=== PATIENT | male | born 1965 | race American Indian/Alaskan Native ===

== ENCOUNTER 2017-09-09 22:59 | Inpatient (IN) | payer SELFPAY ==
[2017-09-10 01:56] LABS: Basophils % (Auto) 0.5 % (0.0-1.8); Eosinophils # (Auto) 0.1 K/mm3 (0.0-0.4); Eosinophils % (Auto) 1.1 % (0.0-4.3); Hematocrit 35.5 % (35.5-45.6); Hemoglobin 11.8 gm/dl (11.8-15.2); Lymphocytes # (Auto) 1.2 K/mm3 (1.2-5.4); Lymphocytes % (Auto) 19.2 % (13.4-35.0); Mean Corpuscular HGB Conc 33 % (32-34); Mean Corpuscular Hemoglobin 29 pg (28-32); Mean Corpuscular Volume 87 fl (84-94); Monocytes # (Auto) 0.6 K/mm3 (0.0-0.8); Monocytes % (Auto) 8.7 % (0.0-7.3); Platelet Count 194 K/mm3 (140-440); Red Blood Count 4.07 M/mm3 (3.65-5.03); Red Cell Distribution Width 13.4 % (13.2-15.2)
[2017-09-10 01:59] LABS: Calcium 8.7 mg/dL (8.4-10.2)
[2017-09-10] MEDS ORDERED: UNASYN 3 GM in NACL 0.9% 50 ML IV ONE (12:44)
--- NOTE | 2017-09-10 12:52 | Emergency Department Report ---
ED Lower Extremity HPI - General Chief Complaint: Hyperglycemia Stated Complaint: BILATERAL FOOT PAIN Source: patient Mode of arrival: Ambulatory Limitations: No Limitations - History of Present Illness Initial Comments: 52 yo male with hx of IDDM presents with bilateral foot blisters. 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 He has kept his feet dry. He has bilateral leg swelling chronically but worse then previous. He has several large blisters on both feet. Moderately severe bilateral leg achy pain. Symptoms began gradually 3 days ago. Feet and legs are very tender to touch. Patient does not have a PCP. He states that his blood sugars have been well- controlled. - Related Data Home Medications Medication Instructions Recorded Confirmed Last Taken glipiZIDE [Glipizide Xl] 10 mg PO BID 12/24/13 12/21/14 12/18/14 10mg Previous Rx's Medication Instructions Recorded Last Taken Type Insulin NPH/Regular [NovoLIN 70/30] 25 unit SQ BIDDIAB #1000 ml 02/06/14 Rx 25 units HYDROcodone/ACETAMINOPHEN [[place] 1 each PO Q4-6H PRN #20 tablet 12/21/14 Unknown Rx 7.5-325 mg TAB] Indomethacin 50 mg PO Q8H PRN #30 capsule 12/21/14 Unknown Rx Allergies Allergy/AdvReac Type Severity Reaction Status Date / Time apple [Apple] Allergy Shortness Verified 01/29/14 18:29 of Breath ED Review of Systems ROS: Stated complaint: BILATERAL FOOT PAIN Other details as noted in HPI Comment: All other systems reviewed and negative Constitutional: chills. denies: fever, malaise Neurological: headache (resolved) ED Past Medical Hx - Past Medical History Hx Congestive Heart Failure: No Hx Diabetes: Yes Hx Asthma: No Hx COPD: No - Surgical History Additional Surgical History: prostate surgery - Social History Smoking Status: Never Smoker Substance Use Type: None - Medications Home Medications: Home Medications Medication Instructions Recorded Confirmed Last Taken Type glipiZIDE [Glipizide Xl] 10 mg PO BID 12/24/13 12/21/14 12/18/14 History 10mg Insulin NPH/Regular [NovoLIN 70/30] 25 unit SQ BIDDIAB #1000 ml 02/06/1412/20/14 Rx 25 units HYDROcodone/ACETAMINOPHEN [[place] 1 each PO Q4-6H PRN #20 tablet 12/21/14 Unknown Rx 7.5-325 mg TAB] Indomethacin 50 mg PO Q8H PRN #30 capsule 12/21/14 Unknown Rx ED Physical Exam - General Limitations: No Limitations General appearance: alert, in no apparent distress - Head Head exam: Present: atraumatic, normocephalic - Eye Eye exam: Present: normal appearance - ENT ENT exam: Present: mucous membranes dry, mucous membranes moist - Neck Neck exam: Present: normal inspection. Absent: meningismus - Respiratory Respiratory exam: Present: normal lung sounds bilaterally. Absent: respiratory distress, wheezes, rales, rhonchi - Cardiovascular Cardiovascular Exam: Present: regular rate, normal rhythm, normal heart sounds. Absent: bradycardia, tachycardia, systolic murmur, diastolic murmur, rubs, gallop - GI/Abdominal GI/Abdominal exam: Present: soft, normal bowel sounds. Absent: distended, tenderness, guarding, rebound, rigid - Rectal Rectal exam: Present: deferred - Extremities Exam Extremities exam: Present: other (two large blisters intact left foot right foot large blister not intact with yellow serous drainage) - Back Exam Back exam: Present: normal inspection - Neurological Exam Neurological exam: Present: alert, oriented X3 - Psychiatric Psychiatric exam: Present: normal affect, normal mood - Skin Skin exam: Present: other (erythema prominent distal foot, toes RLE). Absent: dry, intact, normal color ED Course Vital Signs 09/10/17 09/10/17 09/10/17 01:01 07:57 12:56 Temperature 97.7 F 98.8 F 98.3 F Pulse Rate 74 91 H 94 H Respiratory 20 16 16 Rate Blood Pressure 152/76 130/96 Blood Pressure 169/70 [Right] O2 Sat by Pulse 98 97 100 Oximetry 09/10/17 12:57 Temperature Pulse Rate Respiratory 16 Rate Blood Pressure Blood Pressure [Right] O2 Sat by Pulse 100 Oximetry ED Lower Extremity MDM - Lab Data Result diagrams: 09/10/17 01:21 09/10/17 01:21 - Medical Decision Making Mr. Chi presents with large blisters on both feet with underlying cellulitis. Patient is a high risk for limb compromise and sepsis with history of diabetes. Dr. Richardson will admit for further care Critical care attestation.: If time is entered above; I have spent that time in minutes in the direct care of this critically ill patient, excluding procedure time. ED Disposition Clinical Impression: Diabetic foot infection, Cellulitis Disposition: OP ADMIT IP TO THIS HOSP Is pt being admited?: Yes Does the pt Need Aspirin: No Condition: Stable Referrals: PRIMARY CARE, [Primary Care Provider] - 3-5 Days Time of Disposition: 14:11
[2017-09-10] MEDS ORDERED: NACL 0.9% 1000 ML 1,000 ML IV ONE (12:53)
[2017-09-10] MEDS ORDERED: UNASYN/NS 3 GM/100 ML 3 GM/100 ML BAG IV ONE (14:00)
[2017-09-10] MEDS ORDERED: VANCOMYCIN/NS 1 GM/250 ML 1 GM/250 ML BAG IV SCH (14:00)
[2017-09-10] MEDS ORDERED: MOTRIN PO ONE (14:02)
[2017-09-10] MEDS ORDERED: PERCOCET 5/325 PO ONE (14:02)
[2017-09-10] MEDS ORDERED: BOOSTRIX IM ONE (14:10)
[2017-09-10] MEDS ORDERED: VANCOMYCIN/0.45 NS 1 GM/250 ML 1 GM/250 ML BAG IV SCH (14:30)
--- NOTE | 2017-09-10 15:22 | XRay Report ---
BILATERAL FEET, 2 VIEWS History: Foot infection. Findings: There is nonspecific soft tissue swelling of both feet, left greater than right. Normal bone mineralization. No acute osseous findings or joint pathology is identified. Impression: Nonspecific soft tissue swelling most consistent with a cellulitis. No acute bony findings are appreciated on x-ray.
[2017-09-10] MEDS ORDERED: D50W (25GM) Syringe IV PRN (15:47)
[2017-09-10] MEDS: NOVOLOG SUB-Q SCH ×2 (17:22→23:07)
[2017-09-10] MEDS: PERCOCET 5/325 PO PRN (23:08)
--- NOTE | 2017-09-10 23:55 | History and Physical Report ---
History of Present Illness Date of examination: 09/10/17 Date of admission: 09/10/17 14:12 Chief complaint: CC Blisters and redness both feet History of present illness: History of Present Illness 52 yo male with hx of IDDM presents with bilateral foot blisters. 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 He has kept his feet dry. He has bilateral leg swelling chronically but worse then previous. He has several large blisters on both feet. Moderately severe bilateral leg achy pain. Symptoms began gradually 3 days ago. Feet and legs are very tender to touch. Patient does not have a PCP. He states that his blood sugars have been well- controlled. Past Medical History Hx Congestive Heart Failure: No Hx Diabetes: Yes Hx Asthma: No Hx COPD: No - Surgical History Additional Surgical History: prostate surgery - Social History Smoking Status: Never Smoker Substance Use Type: None - Medications Home Medications: Home Medications Medication Instructions Recorded Confirmed Last Taken Type glipiZIDE [Glipizide Xl] 10 mg PO BID 12/24/13 12/21/14 12/18/14 History 10mg Insulin NPH/Regular [NovoLIN 70/30] 25 unit SQ BIDDIAB #1000 ml 02/06/1412/20/14 Rx 25 units HYDROcodone/ACETAMINOPHEN [[place] 1 each PO Q4-6H PRN #20 tablet 12/21/14 Unknown Rx 7.5-325 mg TAB] Indomethacin 50 mg PO Q8H PRN #30 capsule 12/21/14 Unknown Rx Review of Systems ROS: Stated complaint: BILATERAL FOOT PAIN Other details as noted in HPI Comment: All other systems reviewed and negative Constitutional: chills. denies: fever, malaise Neurological: headache (resolved) Medications and Allergies Allergies Allergy/AdvReac Type Severity Reaction Status Date / Time apple [Apple] Allergy Shortness Verified 01/29/14 18:29 of Breath Home Medications Medication Instructions Recorded Confirmed Last Taken Type glipiZIDE [Glipizide Xl] 10 mg PO BID 12/24/13 09/10/17 12/18/14 History 10mg Insulin NPH/Regular [NovoLIN 70/30] 25 unit SQ BIDDIAB #1000 ml 02/06/1412/20/14 Rx 25 units Active Meds: Active Medications Dextrose (D50w (25gm) Syringe) 50 ml IV PRN PRN PRN Reason: Hypoglycemia Vancomycin HCl (Vancomycin/0.45 Ns 1 Gm/250 Ml) 1 gm in 250 mls @ 125 mls/hr IV ONCE [facility] PRN Reason: Protocol Insulin Aspart (Novolog) 0 units SUB-Q ACHS [place] PRN Reason: Protocol Last Admin: 09/10/17 23:07 Dose: 8 units Oxycodone/Acetaminophen (Percocet 5/325) 1 tab PO Q4H PRN PRN Reason: Pain, Moderate (4-6) Last Admin: 09/10/17 23:08 Dose: 1 tab Exam - Constitutional Vitals: Temp Pulse Resp BP Pulse Ox 98.1 F 88 18 143/82 97 09/10/17 16:50 09/10/17 16:50 09/10/17 16:50 09/10/17 16:50 09/10/17 16:50 General appearance: Present: no acute distress, well-nourished - EENT Eyes: Present: PERRL ENT: hearing intact, clear oral mucosa - Neck Neck: Present: supple, normal ROM - Respiratory Respiratory effort: normal Respiratory: bilateral: CTA - Cardiovascular Heart rate: 80 Rhythm: regular Heart Sounds: Present: S1 & S2. Absent: rub, click - Extremities Extremities: pulses symmetrical, No edema, Full ROM, abnormal (Blisters both feet -10cm x 5 cm blister on L foot) Extremity abnormal: erythema (Both feet) Peripheral Pulses: within normal limits - Abdominal General gastrointestinal: Present: soft, non-tender, non-distended, normal bowel sounds Male genitourinary: Present: normal - Integumentary Integumentary: Present: clear, warm, dry - Musculoskeletal Musculoskeletal: gait normal, strength equal bilaterally - Psychiatric Psychiatric: appropriate mood/affect, intact judgment & insight - Neurologic Neurologic: CNII-XII intact, moves all extremities Results - Labs CBC & Chem 7: 09/10/17 01:21 09/10/17 01:21 Labs: Laboratory Last Values WBC 6.4 K/mm3 (4.5-11.0) 09/10/17 01:21 RBC 4.07 M/mm3 (3.65-5.03) 09/10/17 01:21 Hgb 11.8 gm/dl (11.8-15.2) 09/10/17 01:21 Hct 35.5 % (35.5-45.6) 09/10/17 01:21 MCV 87 fl (84-94) 09/10/17 01:21 MCH 29 pg (28-32) 09/10/17 01:21 MCHC 33 % (32-34) 09/10/17 01:21 RDW 13.4 % (13.2-15.2) 09/10/17 01:21 Plt Count 194 K/mm3 (140-440) 09/10/17 01:21 Lymph % (Auto) 19.2 % (13.4-35.0) 09/10/17 01:21 [place] % (Auto) 8.7 % (0.0-7.3) H 09/10/17 01:21 Eos % (Auto) 1.1 % (0.0-4.3) 09/10/17 01:21 Baso % (Auto) 0.5 % (0.0-1.8) 09/10/17 01:21 Lymph # 1.2 K/mm3 (1.2-5.4) 09/10/17 01:21 [place] # 0.6 K/mm3 (0.0-0.8) 09/10/17 01:21 Eos # 0.1 K/mm3 (0.0-0.4) 09/10/17 01:21 Baso # 0.0 K/mm3 (0.0-0.1) 09/10/17 01:21 Seg Neutrophils % 70.5 % (40.0-70.0) H 09/10/17 01:21 Seg Neutrophils # 4.5 K/mm3 (1.8-7.7) 09/10/17 01:21 ESR 5 mm/Hr (0-20) 09/10/17 01:21 VBG pH 7.305 (7.320-7.420) L 09/10/17 01:21 Sodium 135 mmol/L (137-145) L 09/10/17 01:21 Potassium 4.6 mmol/L (3.6-5.0) 09/10/17 01:21 Chloride 95.0 mmol/L (98-107) L 09/10/17 01:21 Carbon Dioxide 29 mmol/L (22-30) 09/10/17 01:21 Anion Gap 16 mmol/L 09/10/17 01:21 BUN 27 mg/dL (9-20) H 09/10/17 01:21 Creatinine 1.5 mg/dL (0.8-1.5) 09/10/17 01:21 Estimated GFR 60 ml/min 09/10/17 01:21 BUN/Creatinine Ratio 18 % 09/10/17 01:21 Glucose 653 mg/dL (75-100) H* 09/10/17 01:21 POC Glucose 305 (70-105) H 09/10/17 21:33 Calcium 8.7 mg/dL (8.4-10.2) 09/10/17 01:21 C-Reactive Protein 0.00 mg/dL (0.00-1.30) 09/10/17 01:21 Assessment and Plan Advance Directives: Yes (Full code) VTE prophylaxis?: Chemical Plan of care discussed with patient/family: Yes - Patient Problems (1) Hyperosmolar non-ketotic state in patient with type 2 diabetes mellitus Current Visit: Yes Status: Acute Plan to address problem: High dose insulin coverage and IV fluids Patient maybe switched to Basal bolus regimen (2) Cellulitis Current Visit: Yes Status: Acute Qualifiers: Site of cellulitis: extremity Site of cellulitis of extremity: lower extremity Laterality: left Qualified Code(s): L03.116 - Cellulitis of left lower limb Plan to address problem: Bilateral foot cellulitis Started on IV Unasyn and Vancomycin Large blisters both feet Defer to Surgery (3) DVT prophylaxis Current Visit: No Status: Acute
[2017-09-11] MEDS: UNASYN/NS 3 GM/100 ML 3 GM/100 ML BAG IV SCH ×4 (05:47→23:47)
[2017-09-11] MEDS ORDERED: UNASYN/NS 3 GM/100 ML 3 GM/100 ML BAG IV SCH (06:00)
[2017-09-11] MEDS: NOVOLOG SUB-Q SCH ×4 (08:41→23:13)
[2017-09-11] MEDS: PERCOCET 5/325 PO PRN (09:18)
[2017-09-11] MEDS: GLUCOTROL XL PO SCH ×2 (09:19→17:44)
--- NOTE | 2017-09-11 10:18 | Consultation ---
History of Present Illness Consult date: 09/11/17 Requesting physician: KARISSA TEJADA Chief complaint: blisters of feet - History of present illness History of present illness: 52 yo M with hx of DM since 2007 presents with c/o blisters of feet and right foot pain for the last 4 days. 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 His socks were also wet at the end of the day. He states he did not have any symptoms until one day later when he started to have some pain in his feet. Two days later, he noticed large blisters on both feet. He c/o pain on the bottom aspect of his right foot. He states some of the blisters popped on their own and were draining clear fluid. He denies redness of his feet or legs, f/c, cp, sob, n/v, abd pain. He states his diabetes is well controlled on insulin however he does not have a primary care doctor and sees a physician at urgent care for this. He is able to walk without difficulty. Past History Past Medical History: diabetes Past Surgical History: TURP Social history: no significant social history. denies: smoking, alcohol abuse Family history: cancer (lung - father), diabetes (mother) Medications and Allergies Allergies Allergy/AdvReac Type Severity Reaction Status Date / Time apple [Apple] Allergy Shortness Verified 01/29/14 18:29 of Breath Home Medications Medication Instructions Recorded Confirmed Last Taken Type glipiZIDE [Glipizide Xl] 10 mg PO BID 12/24/13 09/10/17 12/18/14 History 10mg Insulin NPH/Regular [NovoLIN 70/30] 25 unit SQ BIDDIAB #1000 ml 02/06/1412/20/14 Rx 25 units Active Meds: Active Medications Dextrose (D50w (25gm) Syringe) 50 ml IV PRN PRN PRN Reason: Hypoglycemia Glipizide (Glucotrol Xl) 10 mg PO BIDDIAB [facility] Last Admin: 09/11/17 09:19 Dose: 10 mg Ampicillin Sodium/Sulbactam Sodium (Unasyn/Ns 3 Gm/100 Ml) 3 gm in 100 mls @ 100 mls/hr IV Q6HR [facility] PRN Reason: Protocol Last Admin: 09/11/17 05:47 Dose: 100 mls/hr Insulin Aspart (Novolog) 0 units SUB-Q ACHS [place] PRN Reason: Protocol Last Admin: 09/11/17 08:41 Dose: 4 units Insulin Human Isoph/Insulin Regular (Novolin 70/30) 25 unit SUB-Q BIDDIAB [place] Oxycodone/Acetaminophen (Percocet 5/325) 1 tab PO Q4H PRN PRN Reason: Pain, Moderate (4-6) Last Admin: 09/11/17 09:18 Dose: 1 tab Review of Systems All systems: negative (10 point review of systems was performed and negative except for that listed in HPI) Exam Vital Signs Temp Pulse Resp BP Pulse Ox 97.7 F 74 20 152/76 98 09/10/17 01:01 09/10/17 01:01 09/10/17 01:01 09/10/17 01:01 09/10/17 01:01 Narrative exam: Gen: AAOx3. NAD CV: s1, S2+ Resp: even and unlabored Ext: RLE: 6cm x 3cm blister over right medial malleolus. Skin is intact and healthy, blister is soft and nontender. Degloving of skin over medial and plantar aspect of foot at what appears to be a blister site that spontaneously drained. 4cm of devitalized, insensate skin removed using scissors. Wound measuring 6cm and 4cm with red healthy wound base. No evidence of infection, cellulitis. Nonadherent dressing applied to wound base, covered with gauze and wrapped loosely with kerlex. LLE: 2 Large blisters over dorsal aspect of foot and lower leg. largest one measures approximately 13 cm and second blister measures approximately 10 cm. Both are nontended, with intact healthy skin, not tense. No evidence of cellultitis or infection. Wound of lower lateral leg near calf measures approximately 4cm x 3cm. Wound base is clean with pink tissue. Nonadherent dressing applied to wound base, covered with gauze and wrapped loosely with kerlex. Results - Labs 09/10/17 01:21 09/10/17 01:21 Abnormal lab results 09/10/17 09/10/17 09/10/17 Range/Units 01:03 08:06 15:47 POC Glucose > 500 H 476 H 411 H (70-105) 09/10/17 09/11/17 Range/Units 21:33 06:27 POC Glucose 305 H 249 H (70-105) - Imaging Additional studies: foot xrays Assessment and Plan 52 yo M with 1. uncontrolled DM 2. Blisters of bilateral feet 3. B/L LE wound Plan: 1. continue abx per 1' 2. wound care consult pending 3. continue wound care with nonadherent dressings to existing bilateral foot wounds. Would leave blisters intact as they have no signs of infection, are not tense, and are not tender. Draining them would increase risk of introducing infection into sterile fluid. Will monitor skin at plantar aspect of right foot. If continues to degrade, will need to be widely excised. 4. strict glucose control 5. Consistent carbohydrate diet Thank you for this consultation, please call with any questions or concerns.
[2017-09-11] MEDS ORDERED: MORPHINE IV ONE ×2 (12:06→13:00)
--- NOTE | 2017-09-11 13:07 | Consultation ---
<BRIGITTE YORK - Last Filed: 09/11/17 15:01> History of Present Illness - Reason for Consult Consult date: 09/11/17 bilateral lower extremities cellulitis Requesting physician: KARISSA TEJADA - History of Present Illness 52 yo male with hx of IDDM presents with bilateral foot blisters. 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 He has kept his feet dry. He has bilateral leg swelling chronically but worse than previous. He has several large blisters on both feet. Moderately severe bilateral leg achy pain. Symptoms began gradually 3 days ago. In the ER her temperature was 97.7, pulse 74, respiratory rate 20, saturation 98 %, blood pressure 152/76. White blood cell count was 6.4, Hgb 11.8, platelets 194. creatinine 1.5. Foot x-ray showed non specific soft tissue swelling of both feet left greater than right; normal bone mineralization; no acute oseous finding or joint pathology is identified. ID service is seeing him today to help with further antibiotic management. Microbiology: Blood cultures: none Repiratory cultures: none Current Antimicrobials: unasyn 09/10 Previous Antimicrobials: vancomycin 09/10 Past History Past Medical History: diabetes Past Surgical History: TURP Social history: no significant social history. denies: smoking, alcohol abuse Family history: cancer (lung - father), diabetes (mother) Medications and Allergies Allergies Allergy/AdvReac Type Severity Reaction Status Date / Time apple [Apple] Allergy Shortness Verified 01/29/14 18:29 of Breath Home Medications Medication Instructions Recorded Confirmed Last Taken Type glipiZIDE [Glipizide Xl] 10 mg PO BID 12/24/13 09/10/17 12/18/14 History 10mg Insulin NPH/Regular [NovoLIN 70/30] 25 unit SQ BIDDIAB #1000 ml 02/06/1412/20/14 Rx 25 units Active Meds: Active Medications Dextrose (D50w (25gm) Syringe) 50 ml IV PRN PRN PRN Reason: Hypoglycemia Glipizide (Glucotrol Xl) 10 mg PO BIDDIAB [facility] Last Admin: 09/11/17 09:19 Dose: 10 mg Ampicillin Sodium/Sulbactam Sodium (Unasyn/Ns 3 Gm/100 Ml) 3 gm in 100 mls @ 100 mls/hr IV Q6HR [facility] PRN Reason: Protocol Last Admin: 09/11/17 12:45 Dose: 100 mls/hr Insulin Aspart (Novolog) 0 units SUB-Q ACHS [facility] PRN Reason: Protocol Last Admin: 09/11/17 12:30 Dose: 6 units Insulin Human Isoph/Insulin Regular (Novolin 70/30) 25 unit SUB-Q BIDDIAB [facility] Last Admin: 09/11/17 12:30 Dose: 25 unit Physical Examination - Physical Exam Narrative exam: General appearance: NAD Eyes: anicteric sclerae, moist conjunctivae; no lid-lag; PERRLA HENT: Atraumatic; oropharynx clear Neck: Trachea midline; supple, no thyromegaly or lymphadenopathy Lungs: CTAB CV: RRR, no murmurs Abdomen: Soft, non-tender; no masses or hepatosplenomegaly Extremities: right lateral foot wound, left lower leg wound, left inner upper thigh wound that is healing Skin: warm with right lateral foot wound, left lower leg wound, left inner upper thigh wound that is healing Psych: non verbal Neuro: non verbal Lines: No CVL / PICC - Constitutional Vitals: Vital Signs Temp Pulse Resp BP Pulse Ox 99.6 F 79 16 140/72 98 09/11/17 07:02 09/11/17 07:02 09/11/17 07:02 09/11/17 07:02 09/11/17 07:02 Temperature -Last 24 Hours Temperature 99.6 F Temperature 98.1 F Temperature 98.3 F Results - Labs CBC & Chem 7: 09/10/17 01:21 09/10/17 01:21 Labs: Abnormal lab results 09/10/17 09/10/17 09/11/17 Range/Units 15:47 21:33 06:27 POC Glucose 411 H 305 H 249 H (70-105) 09/11/17 Range/Units 11:14 POC Glucose 255 H (70-105) Assessment and Plan 1) Bilateral lower extremities blister wounds. Not grossly infected. -Foot x-ray 09/10 showed non specific soft tissue swelling of both feet left greater than right -per surgery, 2 Large blisters over dorsal aspect of foot and lower leg. largest one measures approximately 13 cm and second blister measures approximately 10 cm. Both are nontended, with intact healthy skin, not tense. No evidence of cellultitis or infection. Wound of lower lateral leg near calf measures approximately 4cm x 3cm. Wound base is clean with pink tissue. Nonadherent dressing applied to wound base, covered with gauze and wrapped loosely with kerlex. 2) Diabetes; uncontrolled Plan: -continue unasyn for now. likely short course -continue wound care Thank you Dr. Tejada for your consultation, will follow up with you. Brigitte York NP for Dr. Rhonda Espitia MD Infectious Diseases Specialist [facility] ([facility]) M [phone] O [phone] <RHONDA ESPITIA - Last Filed: 09/11/17 16:58> Medications and Allergies Active Meds: Active Medications Dextrose (D50w (25gm) Syringe) 50 ml IV PRN PRN PRN Reason: Hypoglycemia Enoxaparin Sodium (Lovenox) 40 mg SUB-Q QDAY@2200 [place] Glipizide (Glucotrol Xl) 10 mg PO BIDDIAB [facility] Last Admin: 09/11/17 09:19 Dose: 10 mg Ampicillin Sodium/Sulbactam Sodium (Unasyn/Ns 3 Gm/100 Ml) 3 gm in 100 mls @ 100 mls/hr IV Q6HR [facility] PRN Reason: Protocol Last Admin: 09/11/17 12:45 Dose: 100 mls/hr Insulin Aspart (Novolog) 0 units SUB-Q ACHS [facility] PRN Reason: Protocol Last Admin: 09/11/17 12:30 Dose: 6 units Insulin Human Isoph/Insulin Regular (Novolin 70/30) 28 unit SUB-Q BIDDIAB [facility] Physical Examination - Constitutional Vitals: Vital Signs Temp Pulse Resp BP Pulse Ox 98.3 F 71 18 122/65 100 09/11/17 14:58 09/11/17 14:58 09/11/17 14:58 09/11/17 14:58 09/11/17 14:58 Temperature -Last 24 Hours Temperature 98.3 F Temperature 99.6 F Results - Labs CBC & Chem 7: 09/10/17 01:21 09/10/17 01:21 Labs: Abnormal lab results 09/10/17 09/11/17 09/11/17 Range/Units 21:33 06:27 11:14 POC Glucose 305 H 249 H 255 H (70-105) 09/11/17 Range/Units 15:56 POC Glucose 338 H (70-105)
--- NOTE | 2017-09-11 13:22 | Progress Note ---
<NADERNBALLU - Last Filed: 09/11/17 15:01> Objective - Constitutional Vitals: Vital Signs - 12hr 09/11/17 07:02 Temperature 99.6 F Pulse Rate 79 Respiratory 16 Rate Blood Pressure 140/72 O2 Sat by Pulse 98 Oximetry - Labs CBC & Chem 7: 09/10/17 01:21 09/10/17 01:21 Labs: Abnormal lab results 09/10/17 09/10/17 09/11/17 Range/Units 15:47 21:33 06:27 POC Glucose 411 H 305 H 249 H (70-105) 09/11/17 Range/Units 11:14 POC Glucose 255 H (70-105) <ZARIA FAYE R - Last Filed: 09/12/17 21:29> Assessment and Plan /Hyperosmolar non-ketotic state in patient with type 2 diabetes mellitus High dose insulin coverage with long acting and SSI cont ADA diet and IV fluids On presentation BG was 653 /B/L LE Cellulitis Started on IV Unasyn and Vancomycin following admission Foot x-ray 09/10 showed non specific soft tissue swelling of both feet left greater than right per surgery, 2 Large blisters over dorsal aspect of foot and lower leg. largest one measures approximately 13 cm and second blister measures approximately 10 cm. Both are nontended, with intact healthy skin, not tense. No evidence of cellultitis or infection. Wound of lower lateral leg near calf measures approximately 4cm x 3cm. Wound base is clean with pink tissue. Nonadherent dressing applied to wound base, covered with gauze and wrapped loosely with kerlex. ID consulted and recommended to cont Unasyn for now will follow blood cx and wound cx /DVT prophylaxis Lovenox Brief history: 52 yo male with hx of IDDM presents with bilateral foot blisters. Radiological test: Foot x-ray 09/10 showed non specific soft tissue swelling of both feet left greater than right MRI foot - pending LE doppler pending Hospitalist Physical exam: GENERAL: well-developed and well-nourished male lying on bed appeared to be in no discomfort. HEENT: Normocephalic. Atraumatic. No conjunctival congestion or icterus. Patient has moist mucous membranes. NECK: Supple. Trachea midline. CHEST/LUNGS: Clear to auscultated bilaterally, breathing nonlabored. No wheezes crackles or rhonchi. HEART/CARDIOVASCULAR: Regular in rate and rhythm. S1 and S2 positive. ABDOMEN: Abdomen is soft, nontender. Patient has normal bowel sounds. SKIN: There is no rash. Warm and dry. NEURO: No focal motor deficit. Follows command. MUSCULOSKELETAL: No joint effusion or tenderness. EXTRIMITY: wound dressing on b/l foot PSYCH: Cooperative. Subjective Date of service: 09/11/17 Interval history: Pt seen and examined had wound eval at bedside tolerating diet Objective - Constitutional Vitals: Vital Signs - 12hr 09/11/17 07:02 Temperature 99.6 F Pulse Rate 79 Respiratory 16 Rate Blood Pressure 140/72 O2 Sat by Pulse 98 Oximetry - Labs CBC & Chem 7: 09/12/17 07:25 09/12/17 07:25 Labs: Abnormal lab results 09/10/17 09/10/17 09/11/17 Range/Units 15:47 21:33 06:27 POC Glucose 411 H 305 H 249 H (70-105) 09/11/17 Range/Units 11:14 POC Glucose 255 H (70-105)
--- NOTE | 2017-09-11 15:45 | Consultation ---
History of Present Illness Consult date: 09/11/17 Reason for consult: other (Infection, right foot) Past History Past Medical History: diabetes Past Surgical History: TURP Social history: no significant social history. denies: smoking, alcohol abuse Family history: cancer (lung - father), diabetes (mother) Medications and Allergies Allergies Allergy/AdvReac Type Severity Reaction Status Date / Time apple [Apple] Allergy Shortness Verified 01/29/14 18:29 of Breath Home Medications Medication Instructions Recorded Confirmed Last Taken Type glipiZIDE [Glipizide Xl] 10 mg PO BID 12/24/13 09/10/17 12/18/14 History 10mg Insulin NPH/Regular [NovoLIN 70/30] 25 unit SQ BIDDIAB #1000 ml 02/06/1412/20/14 Rx 25 units Active Meds: Active Medications Dextrose (D50w (25gm) Syringe) 50 ml IV PRN PRN PRN Reason: Hypoglycemia Enoxaparin Sodium (Lovenox) 40 mg SUB-Q QDAY@2200 [place] Glipizide (Glucotrol Xl) 10 mg PO BIDDIAB [facility] Last Admin: 09/11/17 09:19 Dose: 10 mg Ampicillin Sodium/Sulbactam Sodium (Unasyn/Ns 3 Gm/100 Ml) 3 gm in 100 mls @ 100 mls/hr IV Q6HR [place] PRN Reason: Protocol Last Admin: 09/11/17 12:45 Dose: 100 mls/hr Insulin Aspart (Novolog) 0 units SUB-Q ACHS [facility] PRN Reason: Protocol Last Admin: 09/11/17 12:30 Dose: 6 units Insulin Human Isoph/Insulin Regular (Novolin 70/30) 28 unit SUB-Q BIDDIAB [facility] Exam Vital Signs Temp Pulse Resp BP Pulse Ox 97.7 F 74 20 152/76 98 09/10/17 01:01 09/10/17 01:01 09/10/17 01:01 09/10/17 01:01 09/10/17 01:01 Results - Labs 09/10/17 01:21 09/10/17 01:21 Abnormal lab results 09/10/17 09/10/17 09/11/17 Range/Units 15:47 21:33 06:27 POC Glucose 411 H 305 H 249 H (70-105) 09/11/17 Range/Units 11:14 POC Glucose 255 H (70-105) Assessment and Plan - Patient Problems (1) Diabetic foot infection Current Visit: Yes Status: Acute Plan to address problem: 1) BLE arterial dopplers 2) MRI, right foot 3) SS to see re assistance with DM management
[2017-09-11] MEDS ORDERED: BOOSTRIX IM ONE (18:50)
--- NOTE | 2017-09-11 19:08 | Magnetic Resonance Report ---
FINAL REPORT PROCEDURE: MRI right knee without IV contrast TECHNIQUE: Magnetic resonance imaging of the RIGHT knee was performed using standard pulse sequences. CPT 45261 HISTORY: right foot wound COMPARISON: No prior studies are available for comparison. FINDINGS: The signal intensity from the bones of the feet appear normal. There is no signal replacement that would suggest osteomyelitis. No fractures are identified. Mild osteoarthritis seen at the MTP joint of the great toe. Flexor and extensor tendons appear intact. Soft tissue swelling is seen in the distal half of the foot greatest anteriorly. There appears to be diffuse subcutaneous edema. No discrete fluid collections are identified however sensitivity detecting discrete fluid corrections is decreased without IV contrast. No significant effusions are identified. There is a small amount of fluid collected in the pre Achilles bursa consistent with mild pre Achilles bursitis. IMPRESSION: Subcutaneous edema visualized as well as mild skin thickening distal half of the foot extending into the toes. The appearance suggests cellulitis. No evidence of osteomyelitis. Mild osteoarthritis MTP joint of the great toe.
[2017-09-11] MEDS: LOVENOX SUB-Q SCH (21:34)
[2017-09-12] MEDS: UNASYN/NS 3 GM/100 ML 3 GM/100 ML BAG IV SCH ×3 (05:46→17:35)
[2017-09-12 08:00] LABS: Hematocrit 30.3 % (35.5-45.6); Hemoglobin 10.4 gm/dl (11.8-15.2); Mean Corpuscular HGB Conc 34 % (32-34); Mean Corpuscular Hemoglobin 29 pg (28-32); Mean Corpuscular Volume 85 fl (84-94); Platelet Count 187 K/mm3 (140-440); Red Blood Count 3.56 M/mm3 (3.65-5.03); Red Cell Distribution Width 13.9 % (13.2-15.2)
[2017-09-12 08:14] LABS: BUN/Creatinine Ratio 17; Blood Urea Nitrogen 19 mg/dL (9-20); Hemolysis Index 7
--- NOTE | 2017-09-12 08:33 | Event Note ---
Date: 09/12/[address] Francisco was consulted for evaluation and debridement of blisters and foot wounds. The blisters were debrided at the bedside yesterday. I will defer wound care to Dr. Francisco and wound care team. Appreciate Dr. Francisco's input and help with the care of this patient. Will sign off. Thank you for this consultation, please call with questions or concerns.
[2017-09-12] MEDS: NOVOLOG SUB-Q SCH ×4 (08:55→23:55)
[2017-09-12] MEDS: GLUCOTROL XL PO SCH ×2 (09:47→17:34)
--- NOTE | 2017-09-12 10:15 | Progress Note ---
<BRIGITTE YORK - Last Filed: 09/12/17 14:28> Assessment and Plan 1) Bilateral lower extremities blister wounds. Not grossly infected. -Foot x-ray 09/10 showed non specific soft tissue swelling of both feet left greater than right -per surgery, 2 Large blisters over dorsal aspect of foot and lower leg. largest one measures approximately 13 cm and second blister measures approximately 10 cm. Both are nontended, with intact healthy skin, not tense. No evidence of cellultitis or infection. Wound of lower lateral leg near calf measures approximately 4cm x 3cm. Wound base is clean with pink tissue. Nonadherent dressing applied to wound base, covered with gauze and wrapped loosely with kerlex. -MRI fo right foot 09/11 showed subcutaneous edema visualized as well as mild skin thickening distal half of the foot extending into the toes; the appearance suggest cellulitis; no evidence of osteomyelitis; mild osteoarhtritis MIP join of great toe. 2) Diabetes; uncontrolled Plan: -continue unasyn for now. likely short course -follow up on BLE arterial doppler -continue wound care -Diabetic management appreciated -Dr. Francisco following Thank you Dr. Richardson for your consultation, will follow up with you. Brigitte York NP for Dr. Rhonda Espitia MD Infectious Diseases Specialist [facility] ([facility]) M [phone] O [phone] Subjective Date of service: 09/12/17 Principal diagnosis: bilateral lower extremities wound and blisters Interval history: I feel a little better, low grade fever Microbiology: Blood cultures: none Repiratory cultures: none Current Antimicrobials: unasyn 09/10 Previous Antimicrobials: vancomycin 09/10 Objective - Exam Narrative Exam: General appearance: NAD Eyes: anicteric sclerae, moist conjunctivae; no lid-lag; PERRLA HENT: Atraumatic; oropharynx clear Neck: Trachea midline; supple, no thyromegaly or lymphadenopathy Lungs: CTAB CV: RRR, no murmurs Abdomen: Soft, non-tender; no masses or hepatosplenomegaly Extremities: right lateral foot wound that is draining, dressing applied, left lower leg wound that is draining, dressing applied, left inner upper thigh wound that is healing Skin: warm with right lateral foot wound, left lower leg wound, left inner upper thigh wound that is healing Psych: non verbal Neuro: non verbal Lines: No CVL / PICC - Constitutional Vitals: Vital Signs Temp Pulse Resp BP Pulse Ox 100.1 F H 84 18 146/65 98 09/12/17 07:39 09/11/17 23:05 09/12/17 07:39 09/12/17 07:39 09/11/17 23:05 Temperature -Last 24 Hours Temperature 100.1 F Temperature 98.9 F Temperature 98.3 F - Labs CBC & Chem 7: 09/12/17 07:25 09/12/17 07:25 Labs: Abnormal lab results 09/11/17 09/11/17 09/11/17 Range/Units 11:14 15:56 23:07 RBC (3.65-5.03) M/mm3 Hgb (11.8-15.2) gm/dl Hct (35.5-45.6) % Potassium (3.6-5.0) mmol/L Glucose (75-100) mg/dL POC Glucose 255 H 338 H 68 L (70-105) Calcium (8.4-10.2) mg/dL 09/12/17 09/12/17 09/12/17 Range/Units 00:56 06:20 07:25 RBC 3.56 L (3.65-5.03) M/mm3 Hgb 10.4 L (11.8-15.2) gm/dl Hct 30.3 L (35.5-45.6) % Potassium (3.6-5.0) mmol/L Glucose (75-100) mg/dL POC Glucose 253 H 223 H (70-105) Calcium (8.4-10.2) mg/dL 09/12/17 Range/Units 07:25 RBC (3.65-5.03) M/mm3 Hgb (11.8-15.2) gm/dl Hct (35.5-45.6) % Potassium 3.5 L D (3.6-5.0) mmol/L Glucose 182 H (75-100) mg/dL POC Glucose (70-105) Calcium 8.0 L (8.4-10.2) mg/dL <RHONDA ESPITIA - Last Filed: 09/12/17 16:08> Objective - Constitutional Vitals: Vital Signs Temp Pulse Resp BP Pulse Ox 100.1 F H 84 18 146/65 98 09/12/17 07:39 09/11/17 23:05 09/12/17 07:39 09/12/17 07:39 09/11/17 23:05 Temperature -Last 24 Hours Temperature 100.1 F Temperature 98.9 F - Labs CBC & Chem 7: 09/12/17 07:25 09/12/17 07:25 Labs: Abnormal lab results 09/11/17 09/11/17 09/12/17 Range/Units 15:56 23:07 00:56 RBC (3.65-5.03) M/mm3 Hgb (11.8-15.2) gm/dl Hct (35.5-45.6) % Potassium (3.6-5.0) mmol/L Glucose (75-100) mg/dL POC Glucose 338 H 68 L 253 H (70-105) Calcium (8.4-10.2) mg/dL 09/12/17 09/12/17 09/12/17 Range/Units 06:20 07:25 07:25 RBC 3.56 L (3.65-5.03) M/mm3 Hgb 10.4 L (11.8-15.2) gm/dl Hct 30.3 L (35.5-45.6) % Potassium 3.5 L D (3.6-5.0) mmol/L Glucose 182 H (75-100) mg/dL POC Glucose 223 H (70-105) Calcium 8.0 L (8.4-10.2) mg/dL
--- NOTE | 2017-09-12 10:41 | Vascular Lab Report ---
LOWER EXTREMITY ARTERIAL DUPLEX: REASON FOR EXAM: Peripheral arterial disease. COMMENTS ON THE RIGHT: Triphasic waveforms are seen proximally. Triphasic waveforms are seen distally. The distal anterior tibial artery has a monophasic flow signal. No significant velocity gradients are identified. No significant plaque is identified. Findings are consistent with normal perfusion. Findings are consistent with the ability to heal distal wounds. COMMENTS ON THE LEFT: Triphasic waveforms are seen proximally. Triphasic waveforms are seen distally. No significant velocity gradients are identified. No significant plaque is identified. Findings are consistent with normal perfusion. Findings are consistent with the ability to heal distal wounds. IMPRESSION: RIGHT: Essentially normal arterial flow. There is a monophasic waveform in the distal right anterior tibial artery. Clinical correlation recommended. LEFT:Essentially normal arterial flow.
--- NOTE | 2017-09-12 13:37 | Progress Note ---
Assessment and Plan - Patient Problems (1) Diabetic foot infection Current Visit: Yes Status: Acute Plan to address problem: 1) Continue antibiotics 2) Local wound care 3) Strict DM control 4) I will sign off. Subjective Date of service: 09/12/17 Patient Reports: Positive: no new complaints Objective Vital Signs - 12hr 09/12/17 07:39 Temperature 100.1 F H Respiratory 18 Rate Blood Pressure 146/65 - Integumentary other (Right foot looks much improved. No evidence of abscess or deep infection ) - Labs 09/12/17 07:25 09/12/17 07:25 Diabetes panel 09/12/17 Range/Units 07:25 Sodium 138 (137-145) mmol/L Potassium 3.5 L D (3.6-5.0) mmol/L Chloride 102.0 (98-107) mmol/L Carbon Dioxide 27 (22-30) mmol/L BUN 19 (9-20) mg/dL Creatinine 1.1 (0.8-1.5) mg/dL Glucose 182 H (75-100) mg/dL Calcium 8.0 L (8.4-10.2) mg/dL Calcium panel 09/12/17 Range/Units 07:25 Calcium 8.0 L (8.4-10.2) mg/dL Pituitary panel 09/12/17 Range/Units 07:25 Sodium 138 (137-145) mmol/L Potassium 3.5 L D (3.6-5.0) mmol/L Chloride 102.0 (98-107) mmol/L Carbon Dioxide 27 (22-30) mmol/L BUN 19 (9-20) mg/dL Creatinine 1.1 (0.8-1.5) mg/dL Glucose 182 H (75-100) mg/dL Calcium 8.0 L (8.4-10.2) mg/dL Adrenal panel 09/12/17 Range/Units 07:25 Sodium 138 (137-145) mmol/L Potassium 3.5 L D (3.6-5.0) mmol/L Chloride 102.0 (98-107) mmol/L Carbon Dioxide 27 (22-30) mmol/L BUN 19 (9-20) mg/dL Creatinine 1.1 (0.8-1.5) mg/dL Glucose 182 H (75-100) mg/dL Calcium 8.0 L (8.4-10.2) mg/dL
--- NOTE | 2017-09-12 14:45 | Progress Note ---
Assessment and Plan /Hyperosmolar non-ketotic state in patient with type 2 diabetes mellitus High dose insulin coverage with long acting and SSI cont ADA diet and IV fluids On presentation BG was 653 /B/L LE Cellulitis Started on IV Unasyn and Vancomycin following admission Foot x-ray 09/10 showed non specific soft tissue swelling of both feet left greater than right per surgery, 2 Large blisters over dorsal aspect of foot and lower leg. largest one measures approximately 13 cm and second blister measures approximately 10 cm. Both are nontended, with intact healthy skin, not tense. No evidence of cellultitis or infection. Wound of lower lateral leg near calf measures approximately 4cm x 3cm. Wound base is clean with pink tissue. Nonadherent dressing applied to wound base, covered with gauze and wrapped loosely with kerlex. ID consulted and recommended to cont Unasyn for now will follow blood cx and wound cx /DVT prophylaxis Lovenox Brief history: 52 yo male with hx of IDDM presents with bilateral foot blisters. Radiological test: Foot x-ray 09/10 showed non specific soft tissue swelling of both feet left greater than right MRI foot - pending LE doppler pending Hospitalist Physical exam: GENERAL: well-developed and well-nourished male lying on bed appeared to be in no discomfort. HEENT: Normocephalic. Atraumatic. No conjunctival congestion or icterus. Patient has moist mucous membranes. NECK: Supple. Trachea midline. CHEST/LUNGS: Clear to auscultated bilaterally, breathing nonlabored. No wheezes crackles or rhonchi. HEART/CARDIOVASCULAR: Regular in rate and rhythm. S1 and S2 positive. ABDOMEN: Abdomen is soft, nontender. Patient has normal bowel sounds. SKIN: There is no rash. Warm and dry. NEURO: No focal motor deficit. Follows command. MUSCULOSKELETAL: No joint effusion or tenderness. EXTRIMITY: wound dressing on b/l foot PSYCH: Cooperative. Subjective Date of service: 09/11/17 Principal diagnosis: bilateral lower extremities wound and blisters Interval history: Pt seen and examined had wound eval at bedside tolerating diet Objective - Constitutional Vitals: Vital Signs - 12hr 09/12/17 07:39 Temperature 100.1 F H Respiratory 18 Rate Blood Pressure 146/65 - Labs CBC & Chem 7: 09/12/17 07:25 09/12/17 07:25 Labs: Abnormal lab results 09/11/17 09/11/17 09/12/17 Range/Units 15:56 23:07 00:56 RBC (3.65-5.03) M/mm3 Hgb (11.8-15.2) gm/dl Hct (35.5-45.6) % Potassium (3.6-5.0) mmol/L Glucose (75-100) mg/dL POC Glucose 338 H 68 L 253 H (70-105) Calcium (8.4-10.2) mg/dL 09/12/17 09/12/17 09/12/17 Range/Units 06:20 07:25 07:25 RBC 3.56 L (3.65-5.03) M/mm3 Hgb 10.4 L (11.8-15.2) gm/dl Hct 30.3 L (35.5-45.6) % Potassium 3.5 L D (3.6-5.0) mmol/L Glucose 182 H (75-100) mg/dL POC Glucose 223 H (70-105) Calcium 8.0 L (8.4-10.2) mg/dL
--- NOTE | 2017-09-12 21:30 | Progress Note ---
Assessment and Plan // Hyperosmolar non-ketotic state in patient with type 2 diabetes mellitus On presentation BG was 653 Will adjust insulin according to BG level cont to cover with long acting insulin and SSI cont ADA diet and IV fluids // B/L LE Cellulitis Started on IV Unasyn and Vancomycin following admission Foot x-ray 09/10 showed non specific soft tissue swelling of both feet left greater than right per surgery, 2 Large blisters over dorsal aspect of foot and lower leg. largest one measures approximately 13 cm and second blister measures approximately 10 cm. Both are nontended, with intact healthy skin, not tense. No evidence of cellultitis or infection. Wound of lower lateral leg near calf measures approximately 4cm x 3cm. Wound base is clean with pink tissue. Nonadherent dressing applied to wound base, covered with gauze and wrapped loosely with kerlex. ID consulted and recommended to cont Unasyn for now //hypoglycemia will reduce insulin dose //hypokalemia - will replace // DVT prophylaxis Lovenox Brief history: 52 yo male with hx of IDDM presents with bilateral foot blisters. Radiological test: Foot x-ray 09/10 showed non specific soft tissue swelling of both feet left greater than right MRI foot - soft tissue cellulitis, no osteomylitis LE doppler negative for DVT Hospitalist Physical exam: GENERAL: well-developed and well-nourished male lying on bed appeared to be in no discomfort. HEENT: Normocephalic. Atraumatic. No conjunctival congestion or icterus. Patient has moist mucous membranes. NECK: Supple. Trachea midline. CHEST/LUNGS: Clear to auscultated bilaterally, breathing nonlabored. No wheezes crackles or rhonchi. HEART/CARDIOVASCULAR: Regular in rate and rhythm. S1 and S2 positive. ABDOMEN: Abdomen is soft, nontender. Patient has normal bowel sounds. SKIN: There is no rash. Warm and dry. NEURO: No focal motor deficit. Follows command. MUSCULOSKELETAL: No joint effusion or tenderness. EXTRIMITY: wound dressing on b/l foot PSYCH: Cooperative. Subjective Date of service: 09/11/17 Principal diagnosis: bilateral lower extremities wound and blisters Interval history: Pt seen and examined BG was low today also spiked fever Objective - Constitutional Vitals: Vital Signs - 12hr 09/12/17 16:28 Temperature 99.9 F H Pulse Rate 79 Respiratory 20 Rate Blood Pressure 150/84 O2 Sat by Pulse 97 Oximetry - Labs CBC & Chem 7: 09/12/17 07:25 09/12/17 07:25 Labs: Abnormal lab results 09/11/17 09/12/17 09/12/17 Range/Units 23:07 00:56 06:20 RBC (3.65-5.03) M/mm3 Hgb (11.8-15.2) gm/dl Hct (35.5-45.6) % Potassium (3.6-5.0) mmol/L Glucose (75-100) mg/dL POC Glucose 68 L 253 H 223 H (70-105) Calcium (8.4-10.2) mg/dL 09/12/17 09/12/17 09/12/17 Range/Units 07:25 07:25 17:26 RBC 3.56 L (3.65-5.03) M/mm3 Hgb 10.4 L (11.8-15.2) gm/dl Hct 30.3 L (35.5-45.6) % Potassium 3.5 L D (3.6-5.0) mmol/L Glucose 182 H (75-100) mg/dL POC Glucose 58 L (70-105) Calcium 8.0 L (8.4-10.2) mg/dL
[2017-09-12] MEDS ORDERED: APRESOLINE IV PRN (21:50)
[2017-09-12] MEDS ORDERED: TYLENOL PO PRN (21:51)
[2017-09-12] MEDS: LOVENOX SUB-Q SCH (21:54)
[2017-09-13] MEDS: UNASYN/NS 3 GM/100 ML 3 GM/100 ML BAG IV SCH ×3 (00:49→12:28)
[2017-09-13 06:36] LABS: BUN/Creatinine Ratio 16; Blood Urea Nitrogen 16 mg/dL (9-20); Calcium 7.7 mg/dL (8.4-10.2); Hemolysis Index 2
[2017-09-13 06:56] LABS: Bilirubin,Urine NEG (Negative); Blood,Urine SM (Negative); Color,Urine Yellow (Yellow); Granular Casts,Urine 1 /LPF; Hyaline Casts,Urine 4 /LPF; Mucus,Urine FEW /HPF; Urobilinogen,Urine < 2.0 mg/dL (<2.0)
[2017-09-13] MEDS: GLUCOTROL XL PO SCH ×2 (08:26→17:45)
[2017-09-13] MEDS: NOVOLOG SUB-Q SCH ×4 (08:28→22:00)
[2017-09-13] MEDS: NORVASC PO SCH (09:48)
--- NOTE | 2017-09-13 10:02 | Progress Note ---
<BRIGITTE YORK - Last Filed: 09/13/17 15:45> Assessment and Plan 1) Bilateral lower extremities blister wounds. Not grossly infected. -Foot x-ray 09/10 showed non specific soft tissue swelling of both feet left greater than right -per surgery, 2 Large blisters over dorsal aspect of foot and lower leg. largest one measures approximately 13 cm and second blister measures approximately 10 cm. Both are nontended, with intact healthy skin, not tense. No evidence of cellultitis or infection. Wound of lower lateral leg near calf measures approximately 4cm x 3cm. Wound base is clean with pink tissue. Nonadherent dressing applied to wound base, covered with gauze and wrapped loosely with kerlex. -MRI fo right foot 09/11 showed subcutaneous edema visualized as well as mild skin thickening distal half of the foot extending into the toes; the appearance suggest cellulitis; no evidence of osteomyelitis; mild osteoarhtritis MIP join of great toe. -BLE arterial doppler 09/11 showed normal arterial flow 2) Diabetes; uncontrolled Plan: -stop unasyn day 3 -continue wound care -Diabetic management appreciated -start augmentin 875 po daily until 09/16 we will sign off Thank you Dr. Richardson for your consultation, will follow up with you. Brigitte York NP for Dr. Rhonda Espitia MD Infectious Diseases Specialist [facility] ([facility]) M [phone] O [phone] Subjective Date of service: 09/13/17 Principal diagnosis: bilateral lower extremities wound and blisters Interval history: I feel a little better, low grade fever Microbiology: Blood cultures: 09/12 ngtd Repiratory cultures: none Current Antimicrobials: unasyn 09/10 Previous Antimicrobials: vancomycin 09/10 Objective - Exam Narrative Exam: General appearance: NAD Eyes: anicteric sclerae, moist conjunctivae; no lid-lag; PERRLA HENT: Atraumatic; oropharynx clear Neck: Trachea midline; supple, no thyromegaly or lymphadenopathy Lungs: CTAB CV: RRR, no murmurs Abdomen: Soft, non-tender; no masses or hepatosplenomegaly Extremities: dressing to bilateral lower extremities with a little drainage, left inner upper thigh wound that is healing Skin: warm, with dressing to bilateral lower extremities, left inner upper thigh wound that is healing Psych: calm and cooperative Neuro: alert and oriented Lines: No CVL / PICC - Constitutional Vitals: Vital Signs Temp Pulse Resp BP Pulse Ox 99.6 F 78 20 135/66 97 09/13/17 07:38 09/13/17 07:38 09/13/17 07:38 09/13/17 09:48 09/13/17 07:38 Temperature -Last 24 Hours Temperature 99.6 F Temperature 99.1 F Temperature 99.9 F - Labs CBC & Chem 7: 09/12/17 07:25 09/13/17 05:51 Labs: Abnormal lab results 09/12/17 09/12/17 09/13/17 Range/Units 17:26 22:22 05:51 Glucose 185 H (75-100) mg/dL POC Glucose 58 L 219 H (70-105) Calcium 7.7 L (8.4-10.2) mg/dL 09/13/17 Range/Units 06:34 Glucose (75-100) mg/dL POC Glucose 207 H (70-105) Calcium (8.4-10.2) mg/dL <RHONDA ESPITIA - Last Filed: 09/13/17 16:19> Objective - Constitutional Vitals: Vital Signs Temp Pulse Resp BP Pulse Ox 99.6 F 78 20 135/66 97 09/13/17 07:38 09/13/17 07:38 09/13/17 07:38 09/13/17 09:48 09/13/17 07:38 Temperature -Last 24 Hours Temperature 99.6 F Temperature 99.1 F Temperature 99.9 F - Labs CBC & Chem 7: 09/12/17 07:25 09/13/17 05:51 Labs: Abnormal lab results 09/12/17 09/12/17 09/13/17 Range/Units 17:26 22:22 05:51 Glucose 185 H (75-100) mg/dL POC Glucose 58 L 219 H (70-105) Calcium 7.7 L (8.4-10.2) mg/dL 09/13/17 09/13/17 Range/Units 06:34 11:45 Glucose (75-100) mg/dL POC Glucose 207 H 335 H (70-105) Calcium (8.4-10.2) mg/dL
--- NOTE | 2017-09-13 14:51 | Progress Note ---
Assessment and Plan // Hyperosmolar non-ketotic state in patient with type 2 diabetes mellitus On presentation BG was 653 cont to adjust insulin according to BG level cont to cover with long acting insulin and SSI cont ADA diet and IV fluids // B/L LE Cellulitis Started on IV Unasyn and Vancomycin following admission Foot x-ray 09/10 showed non specific soft tissue swelling of both feet left greater than right, MRI shoed no osteomylitis. wound cx blood cx pending Surgery consulted and Nonadherent dressing applied to wound base, covered with gauze and wrapped loosely with kerlex. ID consulted and recommended to cont Unasyn for now wait for d/c abx coverage recommendation //hypoglycemia will reduce insulin dose //hypokalemia - replaced // DVT prophylaxis Lovenox Brief history: 52 yo male with hx of IDDM presents with bilateral foot blisters. Radiological test: Foot x-ray 09/10 showed non specific soft tissue swelling of both feet left greater than right MRI foot - soft tissue cellulitis, no osteomylitis LE doppler negative for DVT Hospitalist Physical exam: GENERAL: well-developed and well-nourished male lying on bed appeared to be in no discomfort. HEENT: Normocephalic. Atraumatic. No conjunctival congestion or icterus. Patient has moist mucous membranes. NECK: Supple. Trachea midline. CHEST/LUNGS: Clear to auscultated bilaterally, breathing nonlabored. No wheezes crackles or rhonchi. HEART/CARDIOVASCULAR: Regular in rate and rhythm. S1 and S2 positive. ABDOMEN: Abdomen is soft, nontender. Patient has normal bowel sounds. SKIN: There is no rash. Warm and dry. NEURO: No focal motor deficit. Follows command. MUSCULOSKELETAL: No joint effusion or tenderness. EXTRIMITY: wound dressing on b/l foot PSYCH: Cooperative. Subjective Date of service: 09/13/17 Principal diagnosis: bilateral lower extremities wound and blisters Interval history: Pt seen and examined denies any new complaint Objective - Constitutional Vitals: Vital Signs - 12hr 09/13/17 09/13/17 07:38 09:48 Temperature 99.6 F Pulse Rate 78 Respiratory 20 Rate Blood Pressure 150/70 135/66 O2 Sat by Pulse 97 Oximetry - Labs CBC & Chem 7: 09/12/17 07:25 09/13/17 05:51 Labs: Abnormal lab results 09/12/17 09/12/17 09/13/17 Range/Units 17:26 22:22 05:51 Glucose 185 H (75-100) mg/dL POC Glucose 58 L 219 H (70-105) Calcium 7.7 L (8.4-10.2) mg/dL 09/13/17 09/13/17 Range/Units 06:34 11:45 Glucose (75-100) mg/dL POC Glucose 207 H 335 H (70-105) Calcium (8.4-10.2) mg/dL
[2017-09-13] MEDS: LOVENOX SUB-Q SCH (22:07)
[2017-09-13] MEDS: AUGMENTIN 875 MG PO SCH (22:07)
[2017-09-14] MEDS: GLUCOTROL XL PO SCH (08:42)
[2017-09-14] MEDS: NOVOLOG SUB-Q SCH ×2 (08:43→13:43)
[2017-09-14] MEDS: NORVASC PO SCH (09:34)
[2017-09-14] MEDS: AUGMENTIN 875 MG PO SCH (09:34)
--- NOTE | 2017-09-14 10:55 | Discharge Summary ---
Providers - Providers Date of Admission: 09/10/17 14:12 Date of discharge: 09/14/17 Attending physician: ZARIA FAYE 09/10/17 17:57 Consult to Wound/ET Nurse [CONS] Routine Reason For Exam: wound eval 09/11/17 03:20 Consult to Physician [CONS] Routine Consulting Provider: TREVOR HADDAD Reason For Exam: Cellulitis Notified:: yes 09/11/17 09:40 Consult to Physician [CONS] Routine Consulting Provider: DIAZ COE Reason For Exam: Cellulitis both feet Notified:: yes 09/11/17 12:23 Consult to Physician [CONS] Routine Consulting Provider: LORENA HIGGINS Reason For Exam: debridement Place consult to:: dr higgins Notified:: yes Was contact made?: Yes Time called:: 11:45 Primary care physician: MIXER SLAGMAN Hospitalization Condition: Stable Hospital course: Brief history: 52 yo male with hx of IDDM presents with bilateral foot blisters. // Hyperosmolar non-ketotic state in patient with type 2 diabetes mellitus On presentation BG was 653 cont to adjust insulin according to BG level cont to cover with long acting insulin and SSI cont ADA diet and IV fluids // B/L LE Cellulitis Started on IV Unasyn and Vancomycin following admission Foot x-ray 09/10 showed non specific soft tissue swelling of both feet left greater than right, MRI shoed no osteomylitis. wound cx blood cx pending Surgery consulted and Nonadherent dressing applied to wound base, covered with gauze and wrapped loosely with kerlex. ID consulted and recommended to cont Unasyn for now wait for d/c abx coverage recommendation //hypoglycemia will reduce insulin dose //hypokalemia - replaced // LEODAN, likely vasomotor nephropathy, resolved with iv fluid // DVT prophylaxis Lovenox Radiological test: Foot x-ray 09/10 showed non specific soft tissue swelling of both feet left greater than right MRI foot - soft tissue cellulitis, no osteomylitis LE doppler negative for DVT Hospitalist Physical exam: GENERAL: well-developed and well-nourished male lying on bed appeared to be in no discomfort. HEENT: Normocephalic. Atraumatic. No conjunctival congestion or icterus. Patient has moist mucous membranes. NECK: Supple. Trachea midline. CHEST/LUNGS: Clear to auscultated bilaterally, breathing nonlabored. No wheezes crackles or rhonchi. HEART/CARDIOVASCULAR: Regular in rate and rhythm. S1 and S2 positive. ABDOMEN: Abdomen is soft, nontender. Patient has normal bowel sounds. SKIN: There is no rash. Warm and dry. NEURO: No focal motor deficit. Follows command. MUSCULOSKELETAL: No joint effusion or tenderness. EXTRIMITY: wound dressing on b/l foot PSYCH: Cooperative. Disposition: [id number] HOME UNDER HOME [facility] Time spent for discharge: 32 minutes Exam - Constitutional Vitals: Temp Pulse Resp BP Pulse Ox 99.4 F 75 20 116/75 100 09/14/17 07:15 09/14/17 09:34 09/14/17 07:15 09/14/17 09:34 09/14/17 07:15 Plan Activity: advance as tolerated Weight Bearing Status: Partial Weight Bearing Diet: diabetic Follow up with: PRIMARY CARE, [Primary Care Provider] - 3-5 Days Prescriptions: amLODIPine [Norvasc] 10 mg PO QDAY #30 tablet Amoxicillin/K Clav Tab [Augmentin 875MG TAB] 1 each PO Q12HR #6 tablet Insulin NPH/Regular [NovoLIN 70/30] 24 unit SQ QAMDIAB 30 Days ml Insulin NPH/Regular [NovoLIN 70/30] 18 unit SQ QPMDIAB 30 Days ml
[2017-09-14 16:27] VITALS: BP 143/76
== END 2017-09-14 16:30 | disposition home health service (06) | DRG 637 ==
LOC: ED 22:59 → 3A 09-10 14:12
PROVIDERS: ADMIT Internal Medicine; ATTEND Internal Medicine
PROC: 3E0234Z Introduction of Serum, Toxoid and Vaccine into Muscle, Percutaneous Approach (ICD-10-PCS; principal; 2017-09-11)
DX: E11.00 Type 2 diabetes mellitus with hyperosmolarity without nonketotic hyperglycemic-hyperosmolar coma (NKHHC) (principal); N17.0 Acute kidney failure with tubular necrosis; L03.116 Cellulitis of left lower limb; L03.115 Cellulitis of right lower limb; E11.69 Type 2 diabetes mellitus with other specified complication; S90.822A Blister (nonthermal), left foot, initial encounter; S90.821A Blister (nonthermal), right foot, initial encounter; E87.6 Hypokalemia; Z23 Encounter for immunization; Z79.84 Long term (current) use of oral hypoglycemic drugs
CPT/HCPCS: 36415; 80048; 81001; 82805; 82962; 85025; 85027; 85652; 86140; 87040; 90715; 93925; 96374; 96375; J0295; J0360; J1650; J1815; J2270; J3370; J7030